=== PATIENT | female | born 1980 | race Two or more races ===

== ENCOUNTER 2016-06-04 20:47 | Emergency (ER) | payer MEDICAID ==
[2016-06-04 22:47] LABS: HCG,QUALITATIVE URINE NEGATIVE
[2016-06-04] MEDS ORDERED: MECLIZINE HCL 25 MG TABLET ONE (23:28)
[2016-06-04] MEDS ORDERED: DIAZEPAM 5 MG TABLET ONE (23:28)
== END 2016-06-05 00:40 | disposition home or self-care (01) ==
LOC: ED 20:47
DX: B34.9 Viral infection, unspecified (principal); M41.9 Scoliosis, unspecified
CPT/HCPCS: 81025; 99283 ×2; A9270 ×2